=== PATIENT | female | born 1985 | race Caucasian/White ===

== ENCOUNTER 2017-06-26 20:24 | Inpatient (IN) | payer BC ==
[~2017-06-26] VITALS: Ht 160 cm; Wt 69.9 kg
[~2017-06-26 20:24] MED LIST: AMOX250S3 PO; OXYC1SOL6 PO
[2017-06-26] MEDS ORDERED: NS 1000 ML OTHER PRN (21:15)
[2017-06-26] MEDS ORDERED: DINOPROSTONE 10 MG INSERT - REMOVE AT 0600 VAGINAL ONE (21:15)
[2017-06-26 21:24] LABS: AUTOMATED NEUTROPHIL # 5.9 TH/MM3 (1.8-7.7); BASOPHIL % 0.3 % (0.0-2.0); EOSINOPHIL % 0.5 % (0.0-4.0); HEMATOCRIT 29.1 % (35.0-46.0); HEMO FLAGS DIFF FINAL; LYMPHOCYTE # 2.4 TH/MM3 (1.0-4.8); MEAN CELL VOLUME 89.2 FL (80.0-100.0); MEAN CORPUSCULAR HEMOGLOBIN 30.3 PG (27.0-34.0); MONO % 5.7 % (0.0-8.0); NEUT % 66.5 % (16.0-70.0); PLATELET COUNT 193 TH/MM3 (150-450); RED BLOOD COUNT 3.26 MIL/MM3 (4.00-5.30); RED CELL DISTRIBUTION WIDTH 13.4 % (11.6-17.2); WHITE BLOOD COUNT 8.8 TH/MM3 (4.0-11.0)
[2017-06-26 21:27] LABS: BACTERIA, URINE OCC /hpf; BLOOD, URINE NEG (NEG); COMMENT (UR) CULT NOT INDICATED; CULTURE IF INDICATED CULT NOT INDICATED; GLUCOSE,URINE NEG (NEG); KETONE, URINE NEG (NEG); NITRITE,URINE NEG (NEG); PH, URINE 6.5 (5.0-8.5); URINE COLOR YELLOW (YELLW/STRAW)
[2017-06-26] MEDS ORDERED: NS 500 ML BOLUS IV PRN (21:30)
[2017-06-26] MEDS ORDERED: NS 1000 ML IV PRN (21:30)
[2017-06-26] MEDS ORDERED: LACTATED RINGER'S 1000 ML BOLUS IV PRN (21:30)
[2017-06-26] MEDS ORDERED: OXYTOCIN 30 UNITS 500ML PREMIX IV ONE (21:45)
[2017-06-26] MEDS ORDERED: LIDOCAINE HCL 1% 50 ML VIAL I-DERMAL PRN (21:45)
[2017-06-26] MEDS ORDERED: CITRIC ACID-SODIUM CITRATE LIQ 30 ML UDC PO SCH (21:45)
[2017-06-26] MEDS ORDERED: LIDOCAINE HCL 1% 50 ML VIAL INFIL PRN (21:45)
[2017-06-26] MEDS ORDERED: ONDANSETRON HCL 4 MG/2 ML VIAL IV PRN (21:45)
[2017-06-26] MEDS ORDERED: ZOLPIDEM TARTRATE 10 MG TAB PO PRN (21:45)
[2017-06-26] MEDS ORDERED: MINERAL OIL 10 ML VIAL TOPICAL PRN (21:45)
[2017-06-26] MEDS: LACTATED RINGER'S 1000 ML IV SCH (21:55)
[2017-06-26 22:55] VITALS: BP 113/74; PULSE 74
[2017-06-26 22:57] VITALS: RESP 15
[2017-06-26 23:00] VITALS: BP 119/73; PULSE 83
[2017-06-26] MEDS ORDERED: PNV PO (23:03)
[2017-06-27] VITALS (39 sets, daily range): BP systolic 97–141; BP diastolic 48–89; PULSE 59–101; RESP 14–20; TEMP 98–98.6
[2017-06-27] MEDS ORDERED: OXYTOCIN 30 UNITS/NS 500ML PREMIX IV SCH (03:45)
[2017-06-27] MEDS: LACTATED RINGER'S 1000 ML IV SCH (06:00)
[2017-06-27] MEDS ORDERED: fentaNYL 2MCG-BUPIV 0.125% INJ 100 ML ONE (09:11)
[2017-06-27] MEDS ORDERED: ePHEDrine/NS 25 MG/5 ML SYR ONE (09:11)
[2017-06-27] MEDS ORDERED: ePHEDrine/NS 25 MG/5 ML SYR IV PRN (10:15)
[2017-06-27] MEDS ORDERED: DO NOT ADMINISTER ANTICOAGULANTS PRN (11:00)
[2017-06-27] MEDS ORDERED: fentaNYL 2MCG-BUPIV 0.125% 100 ML EPIDURAL SCH (11:00)
[2017-06-27] MEDS ORDERED: NO SYSTEM NARCOTICS PRN (11:00)
--- NOTE | 2017-06-27 12:13 | PD.OB.DELI ---
Weeks gestation: 39 Gest age assessed date: Jun 27, 2017 Gest age assessed time: 07:58 Pt started active labor?: No Medical induction of labor?: Yes Medical induction start date: Jun 26, 2017 Medical induction start time: 20:00 Artificial rupture of membrane: Yes Artificial ROM date: Jun 27, 2017 Artifical ROM time: 06:55 Anesthesia: Epidural Episiotomy: None Vaginal Delivery: Normal Presentation: Occiput anterior Nuchal Cord: x1 Delayed cord clamping (45 sec): Yes Infant: Female, Single Delivery date: Jun 27, 2017 Delivery time: 11:48 One Minute : 8 Five Minute : 8 Placenta: Spontaneous delivery, Intact, 3 vessel cord Estimated blood loss: 300 ml Additional Information left periurethral laceration repaired with 3-0 randyic Trey Howard MD Jun 27, 2017 12:13
[2017-06-27] MEDS ORDERED: SODIUM CHLORIDE 0.9% FLUSH 10 ML FLUSH IV FLUSH PRN (12:15)
[2017-06-27] MEDS ORDERED: oxyCODONE/ACETAMINOPHEN 5 MG/325 MG TAB PO PRN ×2 (12:15)
[2017-06-27] MEDS ORDERED: ONDANSETRON ODT 4 MG TAB PO PRN (12:15)
[2017-06-27] MEDS ORDERED: OXYTOCIN 30 UNITS-500ML PREMIX 500 ML IV ONE (12:15)
[2017-06-27] MEDS ORDERED: WITCH HAZEL 50%/GLYCERIN 12.5% 40 PAD JAR TOPICAL PRN (12:15)
[2017-06-27] MEDS ORDERED: OXYTOCIN 30 UNITS-500ML PREMIX 500 ML IV SCH (12:15)
[2017-06-27] MEDS ORDERED: DOCUSATE SODIUM 50 MG/SENNA 8.6 MG TAB PO PRN (12:15)
[2017-06-27] MEDS ORDERED: OXYTOCIN 10 UNIT/ML AMP XX PRN (12:15)
[2017-06-27] MEDS ORDERED: IBUPROFEN 600 MG TAB PO PRN (12:15)
[2017-06-27] MEDS ORDERED: ALUMINUM/MAGNESIUM/SIMETH 30 ML CUP PO PRN (12:15)
[2017-06-27] MEDS ORDERED: BENZOCAINE 20% TOPICAL SPRAY 60 ML CAN TOPICAL PRN (12:15)
[2017-06-27] MEDS ORDERED: MEASLES, MUMPS, RUBELLA VACCINE 0.5 ML VIAL SQ ONE (16:00)
[2017-06-27] MEDS ORDERED: DIPHTH/TETANUS/ACEL PERTUSSIS (BOOSTER) 0.5 ML VIAL/PFS IM ONE (16:00)
[2017-06-27] MEDS ORDERED: SODIUM CHLORIDE 0.9% FLUSH 10 ML FLUSH IV FLUSH SCH (21:00)
[2017-06-27] MEDS ORDERED: ZOLPIDEM TARTRATE 5 MG TAB PO PRN (21:00)
[2017-06-28] MEDS: ACETAMINOPHEN 325 MG TAB PO PRN ×2 (03:35→10:23)
[2017-06-28 08:15] VITALS: BP 105/65; PULSE 68; RESP 16; TEMP 98.1
--- NOTE | 2017-06-28 12:57 | HHI.OB ---
Subjective Post Day: 1 Remarks pain controlled, mod lochia, +void/flatus Objective Vitals/I&O Vital Signs Date Time Temp Pulse Resp B/P (MAP) Pulse Ox O2 Delivery O2 Flow Rate FiO2 06/28/17 08:15 98.1 68 16 105/65 (78) 06/27/17 19:30 72 107/71 (83) 06/27/17 19:30 98.6 20 06/27/17 15:20 98.5 74 16 107/66 (80) 06/27/17 13:06 68 114/69 (84) Objective Remarks GENERAL: Well-nourished, well-developed patient. CARDIOVASCULAR: Regular rate and rhythm without murmurs, gallops, or rubs. RESPIRATORY: Breath sounds equal bilaterally. No accessory muscle use. ABDOMEN/GI: Abdomen soft, non-tender. Fundus: Firm, non-tender at umbilicus. GENITOURINARY: Light to moderate bleeding. EXTREMITIES: No cyanosis or edema, non-tender, without signs of DVT. Medications and IVs Current Medications Medications (Trade) Dose Ordered Sig/Kena Route Start Time Stop Time Status Last Admin Sodium Chloride 1,000 ml @ 0 mls/hr UNSCH PRN OTHER 06/26/17 21:15 Lactated Ringer's 1,000 ml @ 125 mls/hr Q8H IV 06/26/17 21:30 06/27/17 06:00 Sodium Chloride 500 ml @ 1,000 mls/hr BOLUS PRN IV 06/26/17 21:30 (Xylocaine 1% Inj (50 ml)) 0.1 ml UNSCH X1 PRN I-DERMAL 06/26/17 21:45 07/03/17 21:44 (Bicitra Liq) 30 ml LEAD ADVISOR PO 06/26/17 21:45 06/29/17 21:44 (Xylocaine 1% Inj (50 ml)) 10 ml UNSCH X1 PRN INFIL 06/26/17 21:45 07/03/17 21:44 (Muri-Lube Oil) 10 ml UNSCH PRN TOPICAL 06/26/17 21:45 (NS Flush) 2 ml BID IV FLUSH 06/27/17 21:00 (NS Flush) 2 ml UNSCH PRN IV FLUSH 06/27/17 12:15 (Tylenol) 650 mg Q4H PRN PO 06/27/17 12:15 06/28/17 10:23 (Motrin) 600 mg Q6H PRN PO 06/27/17 12:15 06/28/17 10:23 (Percocet 5-325 Mg) 1 tab Q4H PRN PO 06/27/17 12:15 (Percocet 5-325 Mg) 2 tab Q4H PRN PO 06/27/17 12:15 (Americaine 20% Top Spr) 1 spray Q4H PRN TOPICAL 06/27/17 12:15 (Tucks Pads) 1 applic QID PRN TOPICAL 06/27/17 12:15 (Brianna-Colace) 2 tab Q12H PRN PO 06/27/17 12:15 (Ambien) 5 mg HS PRN PO 06/27/17 21:00 (Mag-Al Plus Susp Liq) 15 ml Q8H PRN PO 06/27/17 12:15 (Zofran Odt) 4 mg Q6H PRN PO 06/27/17 12:15 Assessment/Plan Problem List: (1) Spontaneous vaginal delivery ICD Codes: O80 - Encounter for full-term uncomplicated delivery Plan: doing well d/c home or to stay close room in Trey Hutton MD Jun 28, 2017 12:57
[2017-06-28] MEDS ORDERED: IBUP-232 PO (13:00)
--- NOTE | 2017-06-28 13:00 | HHI.DCPOC ---
Discharge Care Plan Diagnosis: (1) Spontaneous vaginal delivery Your Health Problems Are: Vaginal delivery Report Symptoms to Your Doctor -Temperature above 100.5 degrees -Redness, of incision or excessive or foul smelling drainage -Unusual pain or calf pain -Increased vaginal bleeding -Painful or difficulty urinating -Feelings of extreme sadness or anxiety after 2 weeks Goals to Promote Your Health * To prevent worsening of your condition and complications * To maintain your health at the optimal level Directions to Meet Your Goals Take your medications as prescribed Follow your dietary instruction Follow activity as directed Ensure plenty of rest for recovery Drink fluids for hydration Keep your appointments as scheduled Take your immunizations and boosters as scheduled If your symptoms worsen call your PCP, if no PCP go to Urgent Care Center or Emergency Room Smoking is Dangerous to Your Health. Avoid second hand smoke Call the 24-hour crisis hotline for domestic abuse at Trey Howard MD Jun 28, 2017 13:00
== END 2017-06-28 18:41 | disposition home or self-care (01) | DRG 775 ==
LOC: H2EB 20:24 → H1EA 06-27 13:47
PROVIDERS: ADMIT Obstetrics & Gynecology; ATTEND Obstetrics & Gynecology
PROC: 3E033VJ Introduction of Other Hormone into Peripheral Vein, Percutaneous Approach (ICD-10-PCS; 2017-06-26)
PROC: 10E0XZZ Delivery of Products of Conception, External Approach (ICD-10-PCS; principal; 2017-06-27)
PROC: 0HQ9XZZ Repair Perineum Skin, External Approach (ICD-10-PCS; 2017-06-27)
DX: O71.82 Other specified trauma to perineum and vulva (principal); O69.81X0 Labor and delivery complicated by cord around neck, without compression, not applicable or unspecified; Z37.0 Single live birth; Z3A.39 39 weeks gestation of pregnancy
CPT/HCPCS: 59025; 81001; 85025; 86703; 86900; 86901; J2590; J7120